=== PATIENT | female | born 1965 | race Caucasian/White ===

== ENCOUNTER 2018-08-27 14:23 | Emergency (ER) | payer OTHER ==
[~2018-08-27] VITALS: Ht 165.1 cm; Wt 91.2 kg
[2018-08-27 15:11] LABS: ABSOLUTE NEUTROPHILS 5.4 thou/uL (1.4-8.2); EOSINOPHILS 3.6 % (0.0-3.0); HEMATOCRIT 40.8 % (37.0-47.0); HEMOGLOBIN 13.8 gm/dL (12.0-15.0); LYMPHOCYTES 30.3 % (24.0-44.0); MCH 30.5 pg (26.0-34.0); MCHC 33.8 g/dL (28.0-37.0); MCV 90.4 fL (80.0-100.0); MONOCYTES 7.2 % (1.0-8.0); PLATELET COUNT 282 thou/uL (150-400); POLYS 57.9 % (36.0-66.0); RBC 4.52 mil/uL (4.20-5.00); RDW 12.7 % (10.5-14.5); WBC 9.2 thou/uL (4.0-11.0)
[2018-08-27 15:18] LABS: ANION GAP 10 mmol/L (7-16); BUN 16 mg/dL (7-18); CALCIUM 9.3 mg/dL (8.5-10.1); CHLORIDE 106 mmol/L (98-107); CO2 24 mmol/L (21-32); CREATININE 0.6 mg/dL (0.6-1.0); GLUCOSE 98 mg/dL (74-106); POTASSIUM 3.6 mmol/L (3.5-5.1); SODIUM 140 mmol/L (136-145)
[2018-08-27 15:24] LABS: ALBUMIN 3.9 g/dL (3.4-5.0); DIRECT BILIRUBIN < 0.1 mg/dL (<0.1-0.3); LIPASE 223 U/L (73-393); SGOT 19 U/L (15-37); SGPT 35 U/L (30-65); TOTAL BILIRUBIN 0.4 mg/dL (<0.1-1.0); TOTAL PROTEIN 7.4 g/dL (6.4-8.2)
[2018-08-27] MEDS ORDERED: PRINIVIL20 M1 PO (15:35)
[2018-08-27 17:23] VITALS: BP 146/82
[2018-08-27] MEDS ORDERED: LISINOPRIL20 MG PO (18:43)
--- NOTE | 2018-08-28 13:39 | EKG ---
[place] [address] [facility] [place] [employer] [address] ELECTROCARDIOGRAM REPORT Name: CELY HIGGINS [id number] ������������������ Admission: 08/27/18 ������������������ Attend Phys: Discharge: 08/27/18 ������������������ Date of : 61 Report #: [id number] ����������������������������������������������������������������� [id number] THIS REPORT FOR: //name// [facility] ED Test Date: 2018-08-27 Test Time: 14:28:51 Pat Name: CELY HIGGINS Department: Room: Gender: F [employer]: MEGAN : 1965 Requested By: Inna Jha Order Number: [id number] MD: Mumtaz Medrano Measurements Intervals [place] Rate: 68 P: 30 FL: 161 QRS: 12 QRSD: 87 T: 36 QT: 380 QTc: 405 Interpretive Statements Sinus rhythm Normal tracing No previous ECG available for comparison Electronically Signed On 08-28-2018 13:38:46 CDT by Mumtaz Medrano [email or web address] ��������������������������������������������� <ELECTRONICALLY SIGNED> ���������������������������������������� By: Mumtaz Medrano MD, [facility] ��������������������������������������������� 08/28/18 1338 1428 1428 Mumtaz Medrano MD, FAC /EPI
== END 2018-08-27 19:03 | disposition home or self-care (01) ==
LOC: ER 14:23
PROVIDERS: Emergency Medicine
DX: R07.89 Other chest pain (principal); I10 Essential (primary) hypertension